=== PATIENT | male | born 1995 | race Two or more races ===

== ENCOUNTER 2018-08-30 13:57 | Emergency (ER) | payer OTHER ==
[2018-08-30 14:04] VITALS: BP 141/77; PULSE 111; TEMP 97.5; BMI 23.1
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
== END 2018-08-30 15:06 | disposition home or self-care (01) ==
LOC: JERFT 13:57
PROC: 2W3CX1Z Immobilization of Right Lower Arm using Splint (ICD-10-PCS; principal; 2018-08-30)
DX: R22.31 Localized swelling, mass and lump, right upper limb (principal)
CPT/HCPCS: 73130-TC-RT-FY; 99281-25

== ENCOUNTER 2018-08-31 05:00 | Emergency (ER) | payer SELFPAY ==
[2018-08-31 05:48] VITALS: PULSE 77; TEMP 97.7; BMI 21.4
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
[2018-08-31 06:13] LABS: BASO % 0.9 % (0-2.0); EOS % 5.2 % (0-4.5); HEMATOCRIT 48.1 % (35.4-49); HEMOGLOBIN 15.8 GM/dL (11.7-16.9); LYMPH % 37.2 % (8-40); MCH 30.1 pg (25.7-33.7); MCHC 32.8 g/dl (32.0-35.9); MEAN CELL VOLUME 91.6 fl (80-96); MEAN PLT VOLUME 7.8 fl (7.5-11.1); MONO % 7.6 % (3.8-10.2); NEUT % 49.1 % (42.8-82.8); PLATELET COUNT 245 K/MM3 (134-434); RBC 5.25 M/mm3 (4.00-5.60); RDW 13.8 % (11.9-15.9); WHITE BLOOD COUNT 5.1 K/mm3 (4.0-10.0)
[2018-08-31 06:34] LABS: ALBUMIN 4.4 g/dl (3.4-5.0); ALK PHOS 69 U/L (45-117); ANION GAP 8 MMOL/L (8-16); BILIRUBIN,TOTAL 0.6 mg/dL (0.2-1); BLOOD UREA NITROGEN 8 mg/dL (7-18); CALCIUM 8.9 mg/dL (8.5-10.1); CHLORIDE 108 mmol/L (98-107); CO2 25 mmol/L (21-32); CREATININE 0.8 mg/dL (0.55-1.3); GLUCOSE,RANDOM 84 mg/dL (74-106); SGOT/AST 17 U/L (15-37); SGPT/ALT 22 U/L (13-61); SODIUM 142 mmol/L (136-145); TOT PROT 7.6 g/dl (6.4-8.2)
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
[2018-08-31 09:45] LABS: COCAINE, UR NEGATIVE ng/ml (CUTOFF=300); METHADONE, UR NEGATIVE ng/ml (CUTOFF=300); OPIATES, URI NEGATIVE ng/ml (CUTOFF=300); PHENCYCLIDINE,URINE NEGATIVE ng/ml (CUTOFF=25); URINE AMPHETAMINES NEGATIVE ng/ml (CUTOFF=500); URINE BARBITURATES NEGATIVE ng/ml (CUTOFF=200)
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
[2018-08-31 10:34] LABS: URINE BENZODIAZEPINES POSITIVE ng/ml (CUTOFF=200)
[2018-08-31 10:37] VITALS: BP 128/67
== END 2018-08-31 10:30 | disposition home or self-care (01) ==
LOC: JER 05:00
DX: S02.2XXA Fracture of nasal bones, initial encounter for closed fracture (principal); F10.120 Alcohol abuse with intoxication, uncomplicated; F13.10 Sedative, hypnotic or anxiolytic abuse, uncomplicated; Y90.6 Blood alcohol level of 120-199 mg/100 ml; Y04.0XXA Assault by unarmed brawl or fight, initial encounter; Y93.89 Activity, other specified; Y92.89 Other specified places as the place of occurrence of the external cause; Y99.8 Other external cause status; Y07.410 Brother, perpetrator of maltreatment and neglect
CPT/HCPCS: 36415; 70150-TC-FY; 70486-TC; 80053; 80307; 85025; 87491; 87591; 99284-25

== ENCOUNTER 2018-08-31 12:04 | Inpatient (IN) | payer SELFPAY ==
[2018-08-31 13:28] VITALS: BMI 21.9
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
[2018-08-31] MEDS ORDERED: guaiFENesin/D-METHORPHAN HB 10 ML UNIT-DOSE CUPS PO PRN (14:34)
[2018-08-31] MEDS ORDERED: MAGNESIUM CITRATE 300 ML BOTTLE PO PRN (14:34)
[2018-08-31] MEDS ORDERED: MAGNESIUM HYDROX 2400MG/30ML ORAL SUSPENSION 30 ML CUP PO PRN (14:34)
[2018-08-31] MEDS ORDERED: MAG HYDROX/AL HYDROX/SIMETH 30 ML UNIT-DOSE CUP PO PRN (14:34)
[2018-08-31] MEDS ORDERED: MENTHOL/PHENOL 1 EACH UD MM PRN (14:34)
[2018-08-31] MEDS ORDERED: LOPERAMIDE HCL 2 MG CAPSULE PO PRN (14:34)
[2018-08-31] MEDS ORDERED: P-EPHED 60MG/TRIPROLIDI 2.5MG TABLET PO PRN (14:34)
[2018-08-31] MEDS ORDERED: ACETAMINOPHEN 325 MG TABLET (FP) PO PRN (14:34)
[2018-08-31] MEDS ORDERED: diazePAM 5 MG TABLET PO ONE (17:15)
[2018-08-31] MEDS: diazePAM 5 MG TABLET PO SCH (22:26)
[2018-08-31] MEDS: MELATONIN 5 MG TABLETS PO PRN (22:26)
[2018-08-31] MEDS: THIAMINE HCL 100 MG TABLET (FP) PO SCH (22:26)
[2018-08-31] MEDS: AMOX TR/POT CLAV 875MG/125MG TABLETS (FP) PO SCH (22:26)
[2018-09-01] MEDS: diazePAM 5 MG TABLET PO SCH ×3 (05:20→22:14)
[2018-09-01 10:08] LABS: HEMATOCRIT 44.9 % (35.4-49); HEMOGLOBIN 14.6 GM/dL (11.7-16.9); MCHC 32.5 g/dl (32.0-35.9); MEAN CELL VOLUME 92.3 fl (80-96); MEAN PLT VOLUME 8.6 fl (7.5-11.1); PLATELET COUNT 205 K/MM3 (134-434); RBC 4.86 M/mm3 (4.00-5.60); RDW 13.6 % (11.9-15.9); WHITE BLOOD COUNT 4.8 K/mm3 (4.0-10.0)
[2018-09-01] MEDS: AMOX TR/POT CLAV 875MG/125MG TABLETS (FP) PO SCH ×2 (10:32→22:14)
[2018-09-01] MEDS: PRENATAL VITAMINS W/ FOLIC ACID TABLET (FP) PO SCH (10:32)
[2018-09-01] MEDS: hydrOXYzine PAMOATE 50 MG CAPSULE (FP) PO PRN ×2 (10:34→22:17)
--- NOTE | 2018-09-01 10:42 | PN ---
[facility] CIWA - CIWA Score Nausea/Vomitin-No Nausea/No Vomiting Muscle Tremors: 4-Moderate,w/Arms Extend Anxiety: 4-Mod. Anxious/Guarded Agitation: 2 Paroxysmal Sweats: 1-Minimal Palms Moist Orientation: 1-Uncertain about Date Tacttile Disturbances: 0-None Auditory Disturbances: 0-None Visual Disturbances: 0-None Headache: 0-None Present CIWA-Ar Total Score: 12 S Progress Note (SOAP) Subjective: anxiety tremor sweat restlessness trouble sleep at night irritable Objective: 09/01/18 12:20 Vital Signs Temperature 96.3 F L 09/01/18 10:55 Pulse Rate 66 09/01/18 10:55 Respiratory Rate 18 09/01/18 10:55 Blood Pressure 110/78 09/01/18 10:55 O2 Sat by Pulse Oximetry (%) Laboratory Last Values WBC 4.8 K/mm3 (4.0-10.0) 09/01/18 08:00 RBC 4.86 M/mm3 (4.00-5.60) 09/01/18 08:00 Hgb 14.6 GM/dL (11.7-16.9) 09/01/18 08:00 Hct 44.9 % (35.4-49) 09/01/18 08:00 MCV 92.3 fl (80-96) 09/01/18 08:00 MCH 30.0 pg (25.7-33.7) 09/01/18 08:00 MCHC 32.5 g/dl (32.0-35.9) 09/01/18 08:00 RDW 13.6 % (11.9-15.9) 09/01/18 08:00 Plt Count 205 K/MM3 (134-434) 09/01/18 08:00 MPV 8.6 fl (7.5-11.1) D 09/01/18 08:00 Sodium 141 mmol/L (136-145) 09/01/18 08:00 Potassium 3.7 mmol/L (3.5-5.1) 09/01/18 08:00 Chloride 106 mmol/L (98-107) 09/01/18 08:00 Carbon Dioxide 27 mmol/L (21-32) 09/01/18 08:00 Anion Gap 8 MMOL/L (8-16) 09/01/18 08:00 BUN 14 mg/dL (7-18) 09/01/18 08:00 Creatinine 0.8 mg/dL (0.55-1.3) 09/01/18 08:00 Creat Clearance w eGFR > 60 (>60) 09/01/18 08:00 Random Glucose 86 mg/dL (74-106) 09/01/18 08:00 Calcium 8.7 mg/dL (8.5-10.1) 09/01/18 08:00 Total Bilirubin 0.7 mg/dL (0.2-1) 09/01/18 08:00 AST 18 U/L (15-37) 09/01/18 08:00 ALT 18 U/L (13-61) 09/01/18 08:00 Alkaline Phosphatase 63 U/L (45-117) 09/01/18 08:00 Total Protein 6.3 g/dl (6.4-8.2) L 09/01/18 08:00 Albumin 3.6 g/dl (3.4-5.0) 09/01/18 08:00 RPR Titer Nonreactive (NONREACTIVE) 09/01/18 08:00 HIV 1&2 Antibody Screen Negative 09/01/18 08:00 HIV P24 Antigen Negative 09/01/18 08:00 lab noted Assessment: 09/01/18 12:20 withdrawal sx Plan: continue detox
[2018-09-01 11:29] LABS: ALBUMIN 3.6 g/dl (3.4-5.0); ALK PHOS 63 U/L (45-117); ANION GAP 8 MMOL/L (8-16); BILIRUBIN,TOTAL 0.7 mg/dL (0.2-1); BLOOD UREA NITROGEN 14 mg/dL (7-18); CALCIUM 8.7 mg/dL (8.5-10.1); CHLORIDE 106 mmol/L (98-107); CO2 27 mmol/L (21-32); CREATININE 0.8 mg/dL (0.55-1.3); GLUCOSE,RANDOM 86 mg/dL (74-106); POTASSIUM 3.7 mmol/L (3.5-5.1); SGOT/AST 18 U/L (15-37); SGPT/ALT 18 U/L (13-61); SODIUM 141 mmol/L (136-145); TOT PROT 6.3 g/dl (6.4-8.2)
[2018-09-01] MEDS ORDERED: FLU VACCINE QUAD 60 MCG/0.5 ML (MDV 18-19) IM ONE (12:00)
[2018-09-01] MEDS: THIAMINE HCL 100 MG TABLET (FP) PO SCH (22:14)
[2018-09-02] MEDS: MELATONIN 5 MG TABLETS PO PRN ×2 (00:42→22:19)
[2018-09-02] MEDS: diazePAM 5 MG TABLET PO PRN ×3 (05:34→17:56)
--- NOTE | 2018-09-02 09:47 | PN ---
S CIWA - CIWA Score Nausea/Vomitin-Mild Nausea/No Vomiting Muscle Tremors: 2 Anxiety: 3 Agitation: 1-Slight > Activity Paroxysmal Sweats: 1-Minimal Palms Moist Orientation: 0-Oriented Tacttile Disturbances: 0-None Auditory Disturbances: 0-None Visual Disturbances: 0-None Headache: 2-Mild CIWA-Ar Total Score: 10 S Progress Note (SOAP) Subjective: anxiety restlessness tremor sweat trouble sleep at night Objective: 09/02/18 09:48 Vital Signs Temperature 96.6 F L 09/02/18 09:13 Pulse Rate 67 09/02/18 09:13 Respiratory Rate 18 09/02/18 09:13 Blood Pressure 104/69 09/02/18 09:13 O2 Sat by Pulse Oximetry (%) Laboratory Last Values WBC 4.8 K/mm3 (4.0-10.0) 09/01/18 08:00 RBC 4.86 M/mm3 (4.00-5.60) 09/01/18 08:00 Hgb 14.6 GM/dL (11.7-16.9) 09/01/18 08:00 Hct 44.9 % (35.4-49) 09/01/18 08:00 MCV 92.3 fl (80-96) 09/01/18 08:00 MCH 30.0 pg (25.7-33.7) 09/01/18 08:00 MCHC 32.5 g/dl (32.0-35.9) 09/01/18 08:00 RDW 13.6 % (11.9-15.9) 09/01/18 08:00 Plt Count 205 K/MM3 (134-434) 09/01/18 08:00 MPV 8.6 fl (7.5-11.1) D 09/01/18 08:00 Sodium 141 mmol/L (136-145) 09/01/18 08:00 Potassium 3.7 mmol/L (3.5-5.1) 09/01/18 08:00 Chloride 106 mmol/L (98-107) 09/01/18 08:00 Carbon Dioxide 27 mmol/L (21-32) 09/01/18 08:00 Anion Gap 8 MMOL/L (8-16) 09/01/18 08:00 BUN 14 mg/dL (7-18) 09/01/18 08:00 Creatinine 0.8 mg/dL (0.55-1.3) 09/01/18 08:00 Creat Clearance w eGFR > 60 (>60) 09/01/18 08:00 Random Glucose 86 mg/dL (74-106) 09/01/18 08:00 Calcium 8.7 mg/dL (8.5-10.1) 09/01/18 08:00 Total Bilirubin 0.7 mg/dL (0.2-1) 09/01/18 08:00 AST 18 U/L (15-37) 09/01/18 08:00 ALT 18 U/L (13-61) 09/01/18 08:00 Alkaline Phosphatase 63 U/L (45-117) 09/01/18 08:00 Total Protein 6.3 g/dl (6.4-8.2) L 09/01/18 08:00 Albumin 3.6 g/dl (3.4-5.0) 09/01/18 08:00 RPR Titer Nonreactive (NONREACTIVE) 09/01/18 08:00 HIV 1&2 Antibody Screen Negative 09/01/18 08:00 HIV P24 Antigen Negative 09/01/18 08:00 lab noted Assessment: 09/02/18 09:48 withdrawal sx Plan: continue detox
[2018-09-02] MEDS: AMOX TR/POT CLAV 875MG/125MG TABLETS (FP) PO SCH ×2 (10:44→22:17)
[2018-09-02] MEDS: PRENATAL VITAMINS W/ FOLIC ACID TABLET (FP) PO SCH (10:44)
[2018-09-02] MEDS: diazePAM 5 MG TABLET PO SCH ×2 (10:45→22:17)
[2018-09-02] MEDS: IBUPROFEN 400 MG TABLET (FP) PO PRN ×2 (13:33→22:18)
[2018-09-02 17:28] LABS: URINE APPEARANCE CLEAR; URINE BILIRUBIN NEGATIVE (<2.0 mg/dL); URINE COLOR YELLOW; URINE GLUCOSE (UA) NEGATIVE (NEGATIVE); URINE KETONE NEGATIVE (NEGATIVE); URINE LEUK ESTERASE NEGATIVE (NEGATIVE); URINE NITRITE NEGATIVE (NEGATIVE); URINE PROTEIN NEGATIVE (NEGATIVE); URINE UROBILINOGEN NEGATIVE mg/dL (0.2-1.0)
[2018-09-02] MEDS: THIAMINE HCL 100 MG TABLET (FP) PO SCH (22:17)
[2018-09-03] MEDS: diazePAM 5 MG TABLET PO PRN ×2 (05:29→14:39)
[2018-09-03] MEDS: hydrOXYzine PAMOATE 50 MG CAPSULE (FP) PO PRN ×3 (05:29→22:23)
[2018-09-03] MEDS: diazePAM 5 MG TABLET PO SCH ×2 (10:30→22:22)
[2018-09-03] MEDS: PRENATAL VITAMINS W/ FOLIC ACID TABLET (FP) PO SCH (10:30)
[2018-09-03] MEDS: AMOX TR/POT CLAV 875MG/125MG TABLETS (FP) PO SCH ×2 (10:30→22:22)
--- NOTE | 2018-09-03 11:13 | PN ---
S Progress Note (SOAP) Subjective: alert,irritable,anxious,interrupted sleep, Objective: 09/03/18 11:12 Vital Signs Temperature 97.3 F L 09/03/18 09:54 Pulse Rate 62 09/03/18 09:54 Respiratory Rate 18 09/03/18 09:54 Blood Pressure 118/81 09/03/18 09:54 O2 Sat by Pulse Oximetry (%) Assessment: 09/03/18 11:12 withdrawal symptom Plan: continue detox,discharge in am
[2018-09-03] MEDS: IBUPROFEN 400 MG TABLET (FP) PO PRN (14:41)
[2018-09-03] MEDS: THIAMINE HCL 100 MG TABLET (FP) PO SCH (22:22)
[2018-09-04] MEDS: MELATONIN 5 MG TABLETS PO PRN (00:24)
[2018-09-04 06:11] VITALS: BP 117/66; PULSE 60; TEMP 96.6
[2018-09-04] MEDS ORDERED: diazePAM 5 MG TABLET PO SCH (10:00)
--- NOTE | 2018-09-04 11:20 | DS ---
[facility] Detox Discharge Summary Admission Date: 08/31/18 Discharge Date: 09/04/18 - History Present History: Alcohol Dependence Additional Comments: DETOX COMPLETED. PT STATES HE IS DISCHARGING HOME TO GO BACK TO WORK. ALERT O X 3. NAD. PT REPORTS HE HAS PRIMARY CARE WIT DR. MEMO ORTIZ [place] [address] [place] [address]. Pertinent Past History: PLEASE SEE DX BELOW. - Physical Exam Results Vital Signs: Vital Signs Temperature 96.6 F L 09/04/18 06:11 Pulse Rate 60 09/04/18 06:11 Respiratory Rate 18 09/04/18 06:30 Blood Pressure 117/66 09/04/18 06:11 O2 Sat by Pulse Oximetry (%) Pertinent Admission Physical Exam Findings: WITHDRAWAL SX Laboratory Tests 09/01/18 09/01/18 09/01/18 08:00 08:00 08:00 WBC 4.8 RBC 4.86 Hgb 14.6 Hct 44.9 MCV 92.3 MCH 30.0 MCHC 32.5 RDW 13.6 Plt Count 205 MPV 8.6 D Sodium 141 Potassium 3.7 Chloride 106 Carbon Dioxide 27 Anion Gap 8 BUN 14 Creatinine 0.8 Creat Clearance w eGFR > 60 Random Glucose 86 Calcium 8.7 Total Bilirubin 0.7 AST 18 ALT 18 Alkaline Phosphatase 63 Total Protein 6.3 L Albumin 3.6 Urine Color Urine Appearance Urine pH Ur Specific [place] Urine Protein Urine Glucose (UA) Urine Ketones Urine Blood Urine Nitrite Urine Bilirubin Urine Urobilinogen Ur Leukocyte Esterase RPR Titer Nonreactive HIV 1&2 Antibody Screen HIV P24 Antigen 09/01/18 09/02/18 08:00 13:32 WBC RBC Hgb Hct MCV MCH MCHC RDW Plt Count MPV Sodium Potassium Chloride Carbon Dioxide Anion Gap BUN Creatinine Creat Clearance w eGFR Random Glucose Calcium Total Bilirubin AST ALT Alkaline Phosphatase Total Protein Albumin Urine Color Yellow Urine Appearance Clear Urine pH 5.0 Ur Specific [place] 1.017 Urine Protein Negative Urine Glucose (UA) Negative Urine Ketones Negative Urine Blood Negative Urine Nitrite Negative Urine Bilirubin Negative Urine Urobilinogen Negative Ur Leukocyte Esterase Negative RPR Titer HIV 1&2 Antibody Screen Negative HIV P24 Antigen Negative - Treatment Hospital Course: Detox Protocol Followed, Detoxed Safely, Responded well, Discharged Condition Good - Medication Discharge Medications: Ambulatory Orders Amox-Tr/K Cl [Augmentin 875-125mg Tablet -] 1 tab PO BID #14 tablet 09/03/18 - Diagnosis (1) Alcohol dependence with uncomplicated withdrawal Status: Acute (2) Puncture wound Status: Acute (3) Sedative hypnotic or anxiolytic dependence Status: Acute - AMA Did Patient Leave Against Medical Advice: No
== END 2018-09-04 09:15 | disposition home or self-care (01) | DRG 775 ==
LOC: YASAS 12:04 → Y3N 17:00
PROC: HZ2ZZZZ Detoxification Services for Substance Abuse Treatment (ICD-10-PCS; principal; 2018-08-31)
DX: F10.230 Alcohol dependence with withdrawal, uncomplicated (principal); F13.20 Sedative, hypnotic or anxiolytic dependence, uncomplicated; Z87.891 Personal history of nicotine dependence; S61.431D Puncture wound without foreign body of right hand, subsequent encounter; W25.XXXD Contact with sharp glass, subsequent encounter
CPT/HCPCS: 36415; 80053; 81003; 85027; 86593; 87389; 90688; G0008

== ENCOUNTER 2018-10-17 18:22 | Emergency (ER) | payer SELFPAY ==
[2018-10-17] MEDS ORDERED: ONDANSETRON 4 MG/2 ML VIAL ONE (18:41)
[2018-10-17 18:49] VITALS: PULSE 81; BMI 21.2
--- NOTE | 2018-10-17 19:08 | PDOC ---
History of Present Illness - General Chief Complaint: Seizure Stated Complaint: Seizure Time Seen by Provider: 10/17/18 19:07 - History of Present Illness Initial Comments: 10/17/18 19:26 The patient is a 23 year old male with a PMH of Perocet/Xanax abuse who presents to our ED this evening following a witnessed seizure @ 5:30 p.m.. Mom @ bedside assists in history. 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 Seizure lasted for approximately 1-2 minutes. Patient now c/o headache and nausea. No h/o seizures. Last Percocet/Xanax use > 2 months previous. Patient notes a RLE abscess which he took one of his grandmother's Amoxicillin this morning. No h/o penicillin allergy. States he usually consumes alcohol 2-3x weekly and his last alcoholic drink was 48 hours previous. Mother notes that patient personally knows ED staff member however he did not recognize her when her arrived at the hospital. The patient denies chest pain, shortness of breath, abdominal pain, diarhea/ constipation, dysuria/hematuria. NKDA Surgical: none reported Social: daily marijuana, weekly alcohol, denies other toxic habits PMD: None- insurance pending As per EMR, patient was evaluated in our ED 08/2018 for ETOH intoxication at which time he was found to have Xanax in his system as was as alcohol. Patient completed detox and rehab at [facility] [place]. Past History - Past Medical History Allergies/Adverse Reactions: Allergies Allergy/AdvReac Type Severity Reaction Status Date / Time No Known Allergies Allergy Verified 10/17/18 18:49 Home Medications: Ambulatory Orders Cephalexin [Keflex] 500 mg PO QID #28 capsule 10/17/18 Anemia: No Asthma: Yes (USES AN INHALER) Cancer: No Cardiac Disorders: No CVA: No COPD: No CHF: No Dementia: No Diabetes: No GI Disorders: No Disorders: No HTN: No Hypercholesterolemia: No Kidney Stones: No Liver Disease: No Psychiatric Problems: Yes (drug abuse (percocet/xanax)) Seizures: Yes (DRUG RELATED SEIZURE 2016) Thyroid Disease: No - Surgical History Abdominal Surgery: No Appendectomy: No Cardiac Surgery: No Cholecystectomy: No Lung Surgery: No Neurologic Surgery: No Orthopedic Surgery: No - Reproductive History Testicular Surgery: No - Immunization History Immunization Up to Date: Yes - Suicide/Smoking/Psychosocial Hx Smoking History: Current every day smoker Have you smoked in the past 12 months: No Number of Cigarettes Smoked Daily: 20 Information on smoking cessation initiated: No Hx Alcohol Use: Yes Drug/Substance Use Hx: Yes (marijuana) Substance Use Type: Alcohol, Marijuana, Tranquilizers Hx Substance Use Treatment: No Review of Systems - Review of Systems Constitutional: No: Chills, Fever HEENTM: No: Blurred Vision, Hearing Loss Respiratory: No: Cough, Shortness of Breath Cardiac (ROS): No: Chest Pain, Lightheadedness, Palpitations, Syncope ABD/GI: No: Constipated, Diarrhea, Nausea, Vomiting : No: Burning, Dysuria *Physical Exam - Vital Signs Last Vital Signs Temp Pulse Resp BP Pulse Ox 97.1 F L 81 16 143/76 100 10/17/18 18:22 10/17/18 18:22 10/17/18 18:22 10/17/18 18:22 10/17/18 18:22 - Physical Exam General Appearance: Yes: Nourished, Appropriately Dressed HEENT: positive: Normal Voice, Hearing Grossly Normal Neck: positive: Trachea midline, Supple Respiratory/Chest: positive: Lungs Clear, Normal Breath Sounds Cardiovascular: positive: S1, S2. negative: Edema, JVD, Murmur Vascular Pulses: Dorsalis-Pedis (R): 2+, Doralis-Pedis (L): 2+ Gastrointestinal/Abdominal: positive: Normal Bowel Sounds, Soft Extremity: positive: Normal Capillary Refill, Normal Inspection Integumentary: positive: Normal Color, Dry, Warm Neurologic: positive: size maker II-XII NML intact, Fully Oriented, Alert, Responsive. negative: Facial Droop, Numbness, Confused, Disoriented Moderate Sedation - Procedure Monitoring Vital Signs: Procedure Monitoring Vital Signs Temperature 97.1 F L 10/17/18 18:22 Pulse Rate 81 10/17/18 18:22 Respiratory Rate 16 10/17/18 18:22 Blood Pressure 143/76 10/17/18 18:22 O2 Sat by Pulse Oximetry (%) 100 10/17/18 18:22 Heart Score/ECG Review - ECG Impressions Comment:: 10/17/18 20:19 HR 68, no IHSAN/STD/TWI, normal intervals, no deviations; non-ischemic EKG, no prior EKG in EMR ED Treatment Course - LABORATORY CBC & Chemistry Diagram: 10/17/18 19:50 10/17/18 19:50 Medical Decision Making - Medical Decision Making 10/17/18 19:34 23 year old with seizure. VS unremarkable. A&O x3, no neurologic deficit noted on exam. Frontal diagnosis: Alcohol withdrawal vs. drug intoxication vs. electrolyte derangement (hyponatremia, hypokalemia), hyperglycemia less likely CVA or SAH 2/2 to trauma given clinical history, will refrain from Head CT at this time. 10/17/18 20:19 EKG non-ischemic as documented in EKG section of the EMR 10/17/18 20:39 WBC 15.5 likely 2/2 to seizure activity 10/17/18 20:44 Alcohol < 3 10/17/18 21:15 CMP unremarkable 10/17/18 21:16 Called received from lab - patient UTox positive for benzo, cocaine, marijuana 10/17/18 21:23 [facility] [place] contacted to check bed availability 10/17/18 22:01 Call receieved from [facility] [place] - male detox bed available. 10/17/18 22:08 Patient counseled on UTox including positive cocaine, benzos, marijuana. Cannot recall last cocaine use. Declines transfer to [facility] [place] for detox. Will discharge home with return precautions, neurology follow-up and counseling that patient should seek detoxification/rehabilitation. Patient discharged home with mother. *DC/Admit/Observation/Transfer Diagnosis at time of Disposition: Seizure - Discharge Dispostion Disposition: HOME Condition at time of disposition: Good - Prescriptions Prescriptions: Cephalexin [Keflex] 500 mg PO QID #28 capsule - Referrals Referrals: Maurice Varela MD [Primary Care Provider] - Placido Chairez MD [Staff Physician] - - Patient Instructions Printed Discharge Instructions: DI for Seizure Disorder -- Adult, DI for Cocaine Use Disorder Additional Instructions: You were evaluated today for a seizure. Your labs showed no concerning findings. At this time you are safe for discharge home. Your urine toxicology was positive for cocaine, marijuana and benzodiazepines. At this time you have declined transfer to [facility] [place], should you wish to obtain detoxification/rehabilitation please present at [facility] [place], [address], [place]. We have sent a prescription for an antibiotic to the [facility] in [place]. They have a discounted prescription program ($9.99). Please take the entire antibiotic course as prescribed. A referral has been provided to a neurologist. Please make an appointment for evaluation in the next one week. You can also call your insurance company for a list of neurologists. Your care is not complete until you are evaluated by a neurologist. Return to the Emergency Department for any new/worsening/concerning symptoms. - Post Discharge Activity
[2018-10-17] MEDS ORDERED: SODIUM CHLORIDE 0.9% 500 ML INFUS.BAG IV ONE (19:45)
[2018-10-17] MEDS ORDERED: CEFAZOLIN 1 GM/D5W 1 GM/50 ML BAG IVPB ONE (19:54)
[2018-10-17] MEDS ORDERED: CEFAZOLIN 1 GM/D5W 1 GM/50 ML BAG ONE (20:08)
[2018-10-17 20:19] LABS: BASO % 0.1 % (0-2.0); EOS % 0.4 % (0-4.5); HEMATOCRIT 46.7 % (35.4-49); HEMOGLOBIN 16.2 GM/dL (11.7-16.9); LYMPH % 4.6 % (8-40); MCH 31.7 pg (25.7-33.7); MCHC 34.7 g/dl (32.0-35.9); MEAN CELL VOLUME 91.4 fl (80-96); MEAN PLT VOLUME 8.2 fl (7.5-11.1); NEUT % 88.9 % (42.8-82.8); PLATELET COUNT 268 K/MM3 (134-434); RBC 5.11 M/mm3 (4.00-5.60); RDW 12.7 % (11.9-15.9); WHITE BLOOD COUNT 15.5 K/mm3 (4.0-10.0)
[2018-10-17 20:28] LABS: INR 1.2 (0.83-1.09); PROTHROMBIN TIME (PATIENT) 14.2 SEC (9.7-13.0)
[2018-10-17 21:13] LABS: ALBUMIN 4.4 g/dl (3.4-5.0); ALK PHOS 91 U/L (45-117); ANION GAP 9 MMOL/L (8-16); BILIRUBIN,TOTAL 0.3 mg/dL (0.2-1); BLOOD UREA NITROGEN 13 mg/dL (7-18); CALCIUM 9.3 mg/dL (8.5-10.1); CHLORIDE 109 mmol/L (98-107); CO2 24 mmol/L (21-32); CREATININE 0.8 mg/dL (0.55-1.3); GLUCOSE,RANDOM 94 mg/dL (74-106); POTASSIUM 4.4 mmol/L (3.5-5.1); SGOT/AST 22 U/L (15-37); SGPT/ALT 22 U/L (13-61); SODIUM 142 mmol/L (136-145)
[2018-10-17 21:13] LABS: METHADONE, UR NEGATIVE ng/ml (CUTOFF=300); OPIATES, URI NEGATIVE ng/ml (CUTOFF=300); PHENCYCLIDINE,URINE NEGATIVE ng/ml (CUTOFF=25); URINE AMPHETAMINES NEGATIVE ng/ml (CUTOFF=500); URINE BARBITURATES NEGATIVE ng/ml (CUTOFF=200)
[2018-10-17 21:17] LABS: COCAINE, UR POSITIVE ng/ml (CUTOFF=300); URINE BENZODIAZEPINES POSITIVE ng/ml (CUTOFF=200)
--- NOTE | 2018-10-17 22:18 | PDOC ---
Attending Attestation - Resident Resident Name: Chanell Walsh - ED Attending Attestation I have performed the following: I have examined & evaluated the patient, The case was reviewed & discussed with the resident, I agree w/resident's findings & plan - Medical Decision Making 10/17/18 22:18 Patient uses cocaine, benzos and marijuana in his utox. Labs normal. No need for head CT as he has a completely normal neuro exam. Pt refusing to go to detox at this time. He will go home with his mom. <Carlee Arriaza - Last Filed: 10/17/18 22:18> - HPI HPI: 10/17/18 22:20 The patient is a 23 year old male, with a significant past medical history of polysubstance abuse (recent detox for Percocet and Xanax) and alcohol abuse ( still consumes alcohol 3 beverages/week), who presents to the emergency department s/p witnessed seizure. As per patient, he did not eat today and did not sleep well prior to his episode. The episode lasted 3 min and he did not hit his head when falling backwards, he experienced full body convulsions at this time. 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 While in the ER, patient endorses a mild headache and an abscess to the right thigh (self-drained at home earlier today and took one ? mg Amoxicillin tablet). He denies any recent fevers, chills, or dizziness. He denies any recent nausea, vomit, diarrhea or constipation. He denies any recent chest pain or shortness of breath. He denies any recent dysuria, frequency, urgency or hematuria. Allergies: NKDA Past surgical history: None reported. Social History: Daily marijuana usage. Primary Care Physician: Dr. Waggoner - Physicial Exam PE: 10/17/18 22:20 GENERAL: Awake, alert, and fully oriented, in no acute distress HEAD: No signs of trauma EYES: PERRLA, EOMI, sclera anicteric, conjunctiva clear ENT: Auricles normal inspection, hearing grossly normal, nares patent, oropharynx clear without exudates. Moist mucosa NECK: Normal ROM, supple, no lymphadenopathy, JVD, or masses LUNGS: Breath sounds equal, clear to auscultation bilaterally. No wheezes, and no crackles HEART: Regular rate and rhythm, normal S1 and S2, no murmurs, rubs or gallops ABDOMEN: Soft, nontender, normoactive bowel sounds. No guarding, no rebound. No masses EXTREMITIES: Normal range of motion, no edema. No clubbing or cyanosis. No cords, erythema, or tenderness NEUROLOGICAL: Cranial nerves II through XII grossly intact. Normal speech SKIN: Warm, Dry, normal turgor, no rashes or lesions noted. <Rivera Gamboa - Last Filed: 10/17/18 22:20> Attestations - Attestations 10/17/18 22:20 Documentation prepared by Rivera Gamboa, acting as medical biller/coder for Cralee rAriaza MD. <Rivera Gamboa - Last Filed: 10/17/18 22:20>
[2018-10-17 22:58] VITALS: BP 145/89; TEMP 97.7
--- NOTE | 2018-10-18 10:31 | EKG ---
Test Reason : Blood Pressure : / mmHG Vent. Rate : 068 BPM Atrial Rate : 068 BPM P-R Int : 170 ms QRS Dur : 100 ms QT Int : 372 ms P-R-T Axes : 078 072 047 degrees QTc Int : 395 ms SINUS RHYTHM WITH MARKED SINUS ARRHYTHMIA OTHERWISE NORMAL ECG NO PREVIOUS ECGS AVAILABLE Confirmed by MARGE GRANADO MD ([id number]) on 10/18/2018 10:31:04 AM Referred By: Confirmed By:MARGE GRANADO MD
== END 2018-10-17 22:58 | disposition home or self-care (01) ==
LOC: JER 18:22
DX: R56.9 Unspecified convulsions (principal); F11.10 Opioid abuse, uncomplicated; F13.10 Sedative, hypnotic or anxiolytic abuse, uncomplicated; Z86.69 Personal history of other diseases of the nervous system and sense organs; F17.210 Nicotine dependence, cigarettes, uncomplicated; Z87.09 Personal history of other diseases of the respiratory system
CPT/HCPCS: 36415; 80053; 80307; 85025; 85610; 93005; 93010; 99283-25

== ENCOUNTER 2018-12-19 20:37 | Emergency (ER) | payer OTHER ==
[2018-12-19 20:50] VITALS: BP 140/70; PULSE 103; BMI 25.2
[2018-12-19] MEDS ORDERED: LIDOCAINE 1%/EPI 1:100000 (50 ML MULTI DOSE VIAL) INF ONE (21:47)
[2018-12-19] MEDS ORDERED: LIDOCAINE 1%/EPI 1:100000 (20 ML MULTI DOSE VIAL) ONE (21:49)
--- NOTE | 2018-12-19 22:02 | PDOC ---
History of Present Illness - General Chief Complaint: Laceration Stated Complaint: CHIN LACERATION Time Seen by Provider: 12/19/18 21:30 History Source: Patient Exam Limitations: No Limitations Past History - Past Medical History Allergies/Adverse Reactions: Allergies Allergy/AdvReac Type Severity Reaction Status Date / Time No Known Allergies Allergy Verified 10/17/18 18:49 Home Medications: Ambulatory Orders NK [No Known Home Medication] 12/19/18 Anemia: No Asthma: Yes (USES AN INHALER) Cancer: No Cardiac Disorders: No CVA: No COPD: No CHF: No Dementia: No Diabetes: No GI Disorders: No Disorders: No HTN: No Hypercholesterolemia: No Kidney Stones: No Liver Disease: No Psychiatric Problems: Yes (drug abuse (percocet/xanax)) Seizures: Yes (DRUG RELATED SEIZURE 2017) Thyroid Disease: No - Surgical History Abdominal Surgery: No Appendectomy: No Cardiac Surgery: No Cholecystectomy: No Lung Surgery: No Neurologic Surgery: No Orthopedic Surgery: No - Reproductive History Testicular Surgery: No - Immunization History Immunization Up to Date: Yes - Suicide/Smoking/Psychosocial Hx Smoking History: Current some day smoker Have you smoked in the past 12 months: No Number of Cigarettes Smoked Daily: 20 Information on smoking cessation initiated: No Hx Alcohol Use: Yes Drug/Substance Use Hx: Yes (marijuana) Substance Use Type: Alcohol, Marijuana, Tranquilizers Hx Substance Use Treatment: No Trauma Specific PMHX - Complaint Specific PMHX Arthritis: No *Physical Exam - Vital Signs Last Vital Signs Temp Pulse Resp BP Pulse Ox 103 H 18 140/70 97 12/19/18 20:49 12/19/18 20:49 12/19/18 20:49 12/19/18 20:49 - Physical Exam General Appearance: No: Apparent Distress HEENT: positive: Other (+irregular superifical laceration along chin, able to open and close jaw normally, no facial swelling or deformity noted, no evidence of head trauma) Neck: positive: Supple Respiratory/Chest: positive: Lungs Clear, Normal Breath Sounds. negative: Respiratory Distress Cardiovascular: positive: Regular Rhythm, Regular Rate, S1, S2. negative: Murmur Neurologic: positive: Fully Oriented, Alert, Normal Mood/Affect Procedures - Laceration/Wound Repair Face Wound Length: 2.6 to 5.0 cm Wound Explored: clean Wound's Depth, Shape: superficial Irrigated w/ Saline: Yes Betadine Prep: Yes Anesthesia: 1% Lidocaine w/ Epi Wound Debrided: moderate Wound Repaired With: Sutures Suture Size/Type: 6:0, proline Number of Sutures: 5 Layer Closure: No ED Treatment Course - Medications Given in the ED: ED Medications Discontinued Medications Generic Name Dose Route Start Last Admin Trade Name Saulo PRN Reason Stop Dose Admin Lidocaine/Epinephrine 3 ml 12/19/18 21:47 12/19/18 21:50 Xylocaine 1%-Epi 1:100,000 INF 12/19/18 21:48 3 ml ONCE ONE Administration Medical Decision Making - Medical Decision Making 23 y/o M with hx of substance abuse presents with chin laceration that occurred a few hours ago. Patient accidentally tripped and fell while playing basketball , hitting chin against ground. Denies headache, neck pain, LOC, sob, cp. Patient is UTD on tetanus Lac repaired, no complications 12/19/18 22:01 *DC/Admit/Observation/Transfer Diagnosis at time of Disposition: Chin laceration Qualifiers: Encounter type: initial encounter Qualified Code(s): S01.81XA - Laceration without foreign body of other part of head, initial encounter - Discharge Dispostion Disposition: HOME Condition at time of disposition: Stable Decision to Admit order: No - Referrals Referrals: Maurice Varela MD [Primary Care Provider] - 2 Days - Patient Instructions Printed Discharge Instructions: DI for Laceration Repair Additional Instructions: Thank you for choosing [facility]. It was a pleasure taking care of you. Please keep site clean and dry for the next 24 hours Afterward, you may clean with soap and water Return in 5 days for suture removal Return to the Emergency Department if your symptoms worsen or persist, you have fever, redness, swelling, pustular discharge or other concerning symptoms. - Post Discharge Activity
== END 2018-12-19 22:47 | disposition home or self-care (01) ==
LOC: JERFT 20:37
PROC: 0HQ1XZZ Repair Face Skin, External Approach (ICD-10-PCS; principal; 2018-12-19)
DX: S01.81XA Laceration without foreign body of other part of head, initial encounter (principal); W01.0XXA Fall on same level from slipping, tripping and stumbling without subsequent striking against object, initial encounter; Y93.67 Activity, basketball; Y92.310 Basketball court as the place of occurrence of the external cause; Y99.8 Other external cause status; F13.10 Sedative, hypnotic or anxiolytic abuse, uncomplicated; F11.10 Opioid abuse, uncomplicated; F17.210 Nicotine dependence, cigarettes, uncomplicated
CPT/HCPCS: 12013; 99281-25

== ENCOUNTER 2018-12-27 11:56 | Emergency (ER) | payer OTHER ==
[2018-12-27 12:08] VITALS: BP 148/78; PULSE 69; TEMP 97.5; BMI 24.3
--- NOTE | 2018-12-27 13:05 | PDOC ---
History of Present Illness - General Chief Complaint: Suture/Staple Removal(Here) Stated Complaint: Suture/Staple Removal(Here) Time Seen by Provider: 12/27/18 12:51 - History of Present Illness Initial Comments: 12/27/18 13:03 23-year-old male presents for evaluation of suture removal sutures placed over 5 days ago. He's had no sequelae since suture placement. Past History - Past Medical History Allergies/Adverse Reactions: Allergies Allergy/AdvReac Type Severity Reaction Status Date / Time No Known Allergies Allergy Verified 12/27/18 12:06 Home Medications: Ambulatory Orders NK [No Known Home Medication] 12/19/18 Anemia: No Asthma: Yes (USES AN INHALER) Cancer: No Cardiac Disorders: No CVA: No COPD: No CHF: No Dementia: No Diabetes: No GI Disorders: No Disorders: No HTN: No Hypercholesterolemia: No Kidney Stones: No Liver Disease: No Psychiatric Problems: Yes (drug abuse (percocet/xanax)) Seizures: Yes (DRUG RELATED SEIZURE 2016) Thyroid Disease: No - Surgical History Abdominal Surgery: No Appendectomy: No Cardiac Surgery: No Cholecystectomy: No Lung Surgery: No Neurologic Surgery: No Orthopedic Surgery: No - Reproductive History Testicular Surgery: No - Immunization History Immunization Up to Date: Yes - Suicide/Smoking/Psychosocial Hx Smoking History: Never smoked Have you smoked in the past 12 months: No Number of Cigarettes Smoked Daily: 20 Hx Alcohol Use: No Drug/Substance Use Hx: No Substance Use Type: Alcohol, Marijuana, Tranquilizers Hx Substance Use Treatment: No Review of Systems - Review of Systems Constitutional: Yes: See HPI *Physical Exam - Vital Signs Last Vital Signs Temp Pulse Resp BP Pulse Ox 97.5 F L 69 15 148/78 99 12/27/18 12:06 12/27/18 12:06 12/27/18 12:06 12/27/18 12:06 12/27/18 12:06 - Physical Exam Comments: 12/27/18 13:04 Wound on the chin covered with Parra, 5 sutures are visible wound is well- healed eschar is present Medical Decision Making - Medical Decision Making 12/27/18 13:04 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 *DC/Admit/Observation/Transfer Diagnosis at time of Disposition: Visit for suture removal - Discharge Dispostion Disposition: HOME Condition at time of disposition: Stable Decision to Admit order: No - Referrals Referrals: Maurice Varela MD [Primary Care Provider] - - Patient Instructions Printed Discharge Instructions: DI for Suture Removal Additional Instructions: Return to the emergency room for any issues. Keep the area clean and dry for the next 48 hours. After 48 hours may wash with soap and water. - Post Discharge Activity
== END 2018-12-27 13:06 | disposition home or self-care (01) ==
LOC: JERFT 11:56
DX: Z48.817 Encounter for surgical aftercare following surgery on the skin and subcutaneous tissue (principal); Z48.02 Encounter for removal of sutures
CPT/HCPCS: 99281-25

== ENCOUNTER 2019-06-21 18:48 | Emergency (ER) | payer OTHER ==
[2019-06-21 18:54] VITALS: BP 120/71; PULSE 74; TEMP 97.4; BMI 26.6
--- NOTE | 2019-06-21 19:36 | PDOC ---
History of Present Illness - General Chief Complaint: Seizure Stated Complaint: SEIZURES Time Seen by Provider: 06/21/19 19:28 - History of Present Illness Initial Comments: 06/21/19 20:22 24 y/o M hx of alcohol and benzodiazepine abuse presents to ED [facility] after a witnessed seizure approx 3.5 hours ago. He was with his girlfriend, watching TV in bed when he suddenly screamed and began to seize. He did not his head, or fall. seizure lasted about 4 minutes. Girlfriend reports he was biting his tongue,eyes rolling back, twitching,flailing and foaming at the mouth. Had one episode of non-bloody, non bilious emesis after seizure. Was given Zofran en route.Pt is now back to baseline at bedside. He denies any fevers, chills, chest pain, lightheadedness, preceding aura before seizure. Last alcohol use was 24 hrs ago and last xanax use was 3 days ago.l He has had 2 seizures in the past. His first seizure was in earlier this year and was attributed to alcohol/ drug abuse. Last seizure was 1.5 months ago. received workup at [facility] ( [facility]) was told episode was more likely vasovagal. He has not had a neurology work up since seizures began. 06/21/19 21:11 06/21/19 21:27 Past History - Past Medical History Allergies/Adverse Reactions: Allergies Allergy/AdvReac Type Severity Reaction Status Date / Time No Known Allergies Allergy Verified 06/21/19 18:49 Home Medications: Ambulatory Orders NK [No Known Home Medication] 12/19/18 Anemia: No Asthma: Yes (USES AN INHALER) Cancer: No Cardiac Disorders: No CVA: No COPD: No CHF: No Dementia: No Diabetes: No GI Disorders: No Disorders: No HTN: No Hypercholesterolemia: No Kidney Stones: No Liver Disease: No Psychiatric Problems: Yes (drug abuse (percocet/xanax)) Seizures: Yes (DRUG RELATED SEIZURE 2017) Thyroid Disease: No - Surgical History Abdominal Surgery: No Appendectomy: No Cardiac Surgery: No Cholecystectomy: No Lung Surgery: No Neurologic Surgery: No Orthopedic Surgery: No - Reproductive History Testicular Surgery: No - Immunization History Immunization Up to Date: Yes - Psycho Social/Smoking Cessation Hx Smoking History: Never smoked Have you smoked in the past 12 months: No Number of Cigarettes Smoked Daily: 20 Information on smoking cessation initiated: No Hx Alcohol Use: No Drug/Substance Use Hx: Yes Substance Use Type: Alcohol, Marijuana, Tranquilizers Hx Substance Use Treatment: No Review of Systems - Review of Systems Constitutional: No: Chills, Fever HEENTM: No: Eye Pain, Blurred Vision Respiratory: No: Cough, Shortness of Breath Cardiac (ROS): No: Chest Pain, Lightheadedness ABD/GI: No: Constipated, Diarrhea : No: Burning, Dysuria Musculoskeletal: No: Back Pain, Joint Pain Integumentary: No: Bruising, Change in Color Neurological: No: Headache, Numbness Psychiatric: Yes: Anxiety *Physical Exam - Vital Signs Last Vital Signs Temp Pulse Resp BP Pulse Ox 97.4 F L 74 18 120/71 99 06/21/19 18:49 06/21/19 18:49 06/21/19 18:49 06/21/19 18:49 06/21/19 18:49 - Physical Exam Comments: 06/21/19 21:08 GENERAL: Awake, alert, and fully oriented, in no acute distress HEAD: No signs of trauma, normocephalic, atraumatic EYES: PERRLA, EOMI, sclera anicteric, conjunctiva clear ENT: Auricles normal inspection, hearing grossly normal, nares patent, oropharynx clear without exudates. Moist mucosa. no tongue laceration NECK: Normal ROM, supple, no lymphadenopathy, JVD, or masses LUNGS: No distress, speaks full sentences, clear to auscultation bilaterally HEART: Regular rate and rhythm, normal S1 and S2, no murmurs, rubs or gallops, peripheral pulses normal and equal bilaterally. ABDOMEN: Soft, nontender, normoactive bowel sounds. No guarding, no rebound. No masses EXTREMITIES : Normal inspection, Normal range of motion, no edema. No clubbing or cyanosis NEUROLOGICAL: Cranial nerves II through XII grossly intact. Normal speech, normal gait, no focal sensorimotor deficits SKIN: Warm, Dry, normal turgor, no rashes or lesions noted ED Treatment Course - LABORATORY CBC & Chemistry Diagram: 06/21/19 20:27 06/21/19 20:05 Medical Decision Making - Medical Decision Making 06/21/19 20:33 24 y/o M hx of alcohol and benzodiazepine abuse presents to ED [facility] after a witnessed seizure approx 3.5 hours ago. Pt received 1L IV fluid bolus en route and zofran for nausea and vomiting. ekg, cbc, cmp, utox, ua, cxr consult with Dr. Smallwood If patients labs show no cause for concern and he is discharged. suggest following up outpatient with him. If he is admitted, he will be seen by Dr. Smallwood. 06/21/19 21:05 06/21/19 21:06 06/21/19 21:07 EKG: normal sinus rhythm, normal EKG 06/21/19 21:17 Labs u tox positive for marijuana no benzos Discharge - Discharge Information Problems reviewed: Yes Clinical Impression/Diagnosis: Seizure, Sedative hypnotic or anxiolytic dependence Condition: Improved Disposition: HOME - Admission No - Follow up/Referral Referrals: Maurice Varela MD [Primary Care Provider] - Placido Chairez MD [Staff Physician] - - Patient Discharge Instructions Patient Printed Discharge Instructions: DI for Seizure Disorder -- Adult Additional Instructions: You were seen in the ER after having a seizure. You have been given referral information to follow up with a neurologist Dr. Chairez. Your care is not complete until you do so. Return to the ER You have a second seizure within 24 hours of the first. You are injured during a seizure. You feel you are not able to cope with your condition. Your seizures start to happen more often. You are confused longer than usual after a seizure. You are planning to get or are currently . You have questions or concerns about your condition or care. - Post Discharge Activity Work/Back to School Note: Back to Work
--- NOTE | 2019-06-21 20:38 | PDOC ---
Documentation entered by Christopher Mix SCRIBE, acting as scribe for Denise Mcallister MD. Denise Mcallister MD: This documentation has been prepared by the [employer], SCRIBE, under my direction and personally reviewed by me in its entirety. I confirm that the documentation accurately reflects all work, treatment, procedures, and medical decision making performed by me. Attending Attestation - Resident Resident Name: Mohinder Bass - HPI HPI: 06/21/19 20:26 The patient is a 24 year old male with a significant PMH of asthma, tonic- colonic seizures, alcohol and benzo abuse who presents to the emergency department s/p witnessed seizure. Patient was in bed with his girlfriend when patient had a 4 minute seizure and started foaming at the mouth. Girlfriend denies urinary incontinence, hitting head or tough biting. Patient notes his last drink was 24hrs ago and his last benzo use was 3 days ago. Pt is currently at his baseline. The patient denies chest pain, shortness of breath, headache and dizziness. Denies fever, chills, cough, nausea, vomiting, diarrhea and constipation. Denies dysuria, frequency, urgency and hematuria. Allergies: NKDA - Physicial Exam PE: 06/21/19 20:28 GENERAL: Awake, alert, and fully oriented, in no acute distress HEAD: No signs of trauma EYES: PERRLA, EOMI, sclera anicteric, conjunctiva clear ENT: Auricles normal inspection, hearing grossly normal, nares patent, oropharynx clear without exudates. Moist mucosa NECK: Normal ROM, supple, no lymphadenopathy, JVD, or masses LUNGS: Breath sounds equal, clear to auscultation bilaterally. No wheezes, and no crackles HEART: Regular rate and rhythm, normal S1 and S2, no murmurs, rubs or gallops ABDOMEN: Soft, nontender, normoactive bowel sounds. No guarding, no rebound. No masses EXTREMITIES: Normal range of motion, no edema. No clubbing or cyanosis. No cords, erythema, or tenderness NEUROLOGICAL: Cranial nerves II through XII grossly intact. No tongue fasciculation. No tongue laceration. Normal speech. SKIN: Warm, Dry, normal turgor, no rashes or lesions noted. - Medical Decision Making 06/21/19 20:36 24-year-old male with past medical history of alcohol withdrawal seizures, alcohol and benzodiazepine abuse brought in by ambulance after a witnessed seizure while he was in bed today. Upon arrival patient is alert and oriented x3. Case was discussed with Dr. Chairez and he will see this patient either as an outpatient to get a EEG The patient's never had an actual neurological work-up including a EEG 06/21/19 20:37 plan cbc,comp,pt received IV fluids 06/22/19 01:06 labs unremarkable no focal neuro deficits he did not have any head trauma since the seizure occurred while in bed d/c home with referral to Dr Chairez
[2019-06-21 20:47] LABS: BASO % 0.1 % (0-2.0); EOS % 0.4 % (0-4.5); HEMOGLOBIN 16.2 GM/dL (11.7-16.9); MCH 30.3 pg (25.7-33.7); MCHC 33.2 g/dl (32.0-35.9); MEAN CELL VOLUME 91.4 fl (80-96); MEAN PLT VOLUME 8.1 fl (7.5-11.1); NEUT % 89.5 % (42.8-82.8); PLATELET COUNT 267 K/MM3 (134-434); RBC 5.36 M/mm3 (4.00-5.60); RDW 13.6 % (11.9-15.9); WHITE BLOOD COUNT 16.1 K/mm3 (4.0-10.0)
[2019-06-21 21:09] LABS: COCAINE, UR NEGATIVE ng/ml (CUTOFF=300); OPIATES, URI NEGATIVE ng/ml (CUTOFF=300); PHENCYCLIDINE,URINE NEGATIVE ng/ml (CUTOFF=25); URINE AMPHETAMINES NEGATIVE ng/ml (CUTOFF=500); URINE BENZODIAZEPINES NEGATIVE ng/ml (CUTOFF=200)
[2019-06-21 21:10] LABS: METHADONE, UR NEGATIVE ng/ml (CUTOFF=300); URINE BARBITURATES NEGATIVE ng/ml (CUTOFF=200)
[2019-06-21 21:14] LABS: ALBUMIN 4.4 g/dl (3.4-5.0); BILIRUBIN,TOTAL 0.6 mg/dL (0.2-1); CALCIUM 9.1 mg/dL (8.5-10.1); CREATININE 0.9 mg/dL (0.55-1.3); POTASSIUM 4.1 mmol/L (3.5-5.1); TOT PROT 7.5 g/dl (6.4-8.2)
[2019-06-21 21:16] LABS: EPI CELLS 0.1 /HPF (0-5/HPF); HYALINE CASTS 0 /lpf (0-8); URINE APPEARANCE CLEAR; URINE BACTERIA 0.8 /hpf (NEGATIVE); URINE BILIRUBIN NEGATIVE (NEGATIVE); URINE COLOR YELLOW; URINE GLUCOSE (UA) NEGATIVE (NEGATIVE); URINE KETONE NEGATIVE (NEGATIVE); URINE LEUK ESTERASE NEGATIVE (NEGATIVE); URINE NITRITE NEGATIVE (NEGATIVE); URINE PROTEIN TRACE (NEGATIVE); URINE RBC 0 /hpf (0-4); URINE UROBILINOGEN 0.2 mg/dL (0.2-1.0); URINE WBC 0 /hpf (0-5)
--- NOTE | 2019-06-22 09:57 | EKG ---
Test Reason : Blood Pressure : / mmHG Vent. Rate : 062 BPM Atrial Rate : 062 BPM P-R Int : 180 ms QRS Dur : 098 ms QT Int : 384 ms P-R-T Axes : 061 056 031 degrees QTc Int : 389 ms NORMAL SINUS RHYTHM NORMAL ECG WHEN COMPARED WITH ECG OF 17-OCT-2018 20:12, NO SIGNIFICANT CHANGE WAS FOUND Confirmed by JANETH BUSCH MD ([id number]) on 06/22/2019 9:57:14 AM Referred By: Confirmed By:JANETH BUSCH MD
== END 2019-06-21 22:17 | disposition home or self-care (01) ==
LOC: JER 18:48
DX: R56.9 Unspecified convulsions (principal); F13.10 Sedative, hypnotic or anxiolytic abuse, uncomplicated; F10.10 Alcohol abuse, uncomplicated; J45.909 Unspecified asthma, uncomplicated
CPT/HCPCS: 36415; 71045-TC-FY; 80053; 80307; 81003; 82550; 82553; 84484; 85025; 93005; 93010; 99283-25

== ENCOUNTER 2024-09-02 18:57 | Emergency (ER) | payer OTHER ==
[2024-09-02 19:02] VITALS: BP 150/86; PULSE 79; RESP 18; TEMP 97; BMI 24.3
[2024-09-02] MEDS ORDERED: LIDOCAINE 4% PATCH TP ONE (19:54)
[2024-09-02] MEDS ORDERED: NAPROXEN 500 MG TABLET ONE (19:54)
[2024-09-02] MEDS: LIDOCAINE 5% TOPICAL PATCH TP ONE (19:57)
[2024-09-02] MEDS: NAPROXEN 500 MG TABLET PO ONE (19:58)
[2024-09-02] MEDS ORDERED: LIDOCAINE PATCH REMOVAL MC SCH (22:00)
== END 2024-09-02 21:36 | disposition home or self-care (01) ==
LOC: JERFT 18:57
DX: M25.511 Pain in right shoulder (principal); M54.2 Cervicalgia; Y04.8XXA Assault by other bodily force, initial encounter
CPT/HCPCS: 73030-TC-RT-FY; 99283-25

== ENCOUNTER 2024-10-12 17:24 | Emergency (ER) | payer SELFPAY ==
[2024-10-12 17:32] VITALS: BP 133/87; PULSE 75; RESP 20; TEMP 99.4; BMI 24.3
== END 2024-10-12 18:39 | disposition home or self-care (01) ==
LOC: JERFT 17:24 → JER 17:24 → JERFT 18:39
DX: J10.1 Influenza due to other identified influenza virus with other respiratory manifestations (principal); R05.9 Cough, unspecified; R09.81 Nasal congestion; R50.9 Fever, unspecified; R51.9 Headache, unspecified; M79.10 Myalgia, unspecified site; R19.7 Diarrhea, unspecified; Z20.822 Contact with and (suspected) exposure to COVID-19
CPT/HCPCS: 0241U-QW; 99283-25